=== PATIENT | female | born 1960 | race Caucasian/White ===

== ENCOUNTER 2016-10-23 05:23 | Emergency (ER) | payer BC, OTHER ==
--- NOTE | 2016-10-23 05:27 | PDOC ---
History of Present Illness - General Stated Complaint: RX TO SHINGLES SHOT - History of Present Illness Initial Comments: This 56-year-old woman with a history of hypertension and hyperlipidemia presents with 12 hour history of subjective fever and warm/red/painful area of the left upper arm where she had zoster vaccine administered approximately 24 hours prior to onset of symptoms.(Patient also had influenza vaccination but this was given higher up on her arm). Patient denies lip/tongue swelling. She had no difficulty swallowing or breathing. She denies wheezing/stridor. No previous known history of adverse reaction to vaccine. Patient has no known ALLERGIES. Patient also has had a generalized headache in the last several hours. There is been no recent upper respiratory infection symptoms, cough or rash. Patient smokes one pack of cigarettes per week Social alcohol only Medications as noted below Past History - Past Medical History Allergies/Adverse Reactions: Allergies Allergy/AdvReac Type Severity Reaction Status Date / Time No Known Allergies Allergy Verified 05/10/15 07:10 Home Medications: Ambulatory Orders Albuterol Sulfate Inhaler - [Ventolin HFA Inhaler -] 2 inh IH Q4H PRN #1 inh Fenofibrate 05/10/15 Oseltamivir Phosphate [Tamiflu] 75 mg PO BID #10 capsule 05/10/15 Zyrtec - 05/10/15 Hypercholesterolemia: Yes - Psycho/Social/Smoking Cessation Hx Anxiety: No Suicidal Ideation: No Smoking History: Current some day smoker Have you smoked in the past 12 months: Yes Number of Cigarettes Smoked Daily: 1 'Breaking Loose' booklet given: 06/09/13 Hx Alcohol Use: Yes (1 PER WEEK) Drug/Substance Use Hx: No Substance Use Type: None Review of Systems - Review of Systems Able to Perform ROS?: Yes Comments:: 12 point review of systems is negative except for what is noted in the history of present illness *Physical Exam - Physical Exam Comments: GENERAL: Adult female, anxious but in no acute distress HEAD: Normal with no signs of trauma. EYES: PERRLA, EOMI, sclera anicteric, conjunctiva clear. ENT: Ears normal, nares patent, oropharynx clear without exudates. Dry mucous membranes. NECK: Normal range of motion, supple without lymphadenopathy, JVD, or masses. No stridor LUNGS: Breath sounds equal, clear to auscultation bilaterally. No wheezes, and no crackles. HEART:Regular rate and rhythm, normal S1 and S2 without murmur, rub or gallop. ABDOMEN:.normal bowel sounds No guarding,tenderness or rebound.No masses No distention. EXTREMITIES: Left upper extremity: 4 cm x 5 cm indurated, erythematous, mildly tender area lateral aspect mid upper arm No fluctuance or open wounds; no purulent drainage Remainder of the extremity exam is normal NEUROLOGICAL: Cranial nerves II through XII grossly intact. Normal speech. No focal neurological deficits. MUSCULOSKELETAL: Back non-tender to palpation, no CVA tenderness SKIN: Warm, Dry, normal turgor, Medical Decision Making - Medical Decision Making 10/23/16 05:54 Clinical presentation most consistent with local adverse effect to zoster vaccine. Patient given Tylenol 1 g by mouth for her headache 10/23/16 06:12 Patient tolerating fluids by mouth (12 ounces of water) without vomiting or other problems Patient will be discharged with instructions to continue rest/plenty of fluids. She should take Motrin or Tylenol as needed for fever and headache. She can place warm compresses to the area of inflammation on her arm. She return if she has vomiting/severe headache or any difficulty swallowing or breathing. She should follow-up with her PMD, Dr. Alejandro within the next week to 10 days *DC/Admit/Observation/Transfer Diagnosis at time of Disposition: Adverse effect of zoster vaccine - Discharge Dispostion Disposition: HOME Condition at time of disposition: Stable - Referrals Referrals: Rebecca Alejandro MD [Primary Care Provider] - - Patient Instructions Printed Discharge Instructions: Shingles (Zoster) Vaccine Additional Instructions: Rest; drink plenty of fluids Can apply local warm compresses to painful area on left arm Tylenol/Motrin as needed for fever and headache Return to ER if you have difficulty swallowing/breathing or have persistent high fever /severe rash Follow-up with Dr. Alejandro within the next week to 10 days
[2016-10-23 05:31] VITALS: BP 143/80; PULSE 83; TEMP 99.6
[2016-10-23] MEDS ORDERED: ACETAMINOPHEN 500 MG TABLET (FP) PO ONE (05:43)
[2016-10-23] MEDS ORDERED: ACETAMINOPHEN 500 MG TABLET (FP) ONE (05:47)
== END 2016-10-23 06:12 | disposition home or self-care (01) ==
LOC: FER 05:23
DX: M79.622 Pain in left upper arm (principal); T50.995A Adverse effect of other drugs, medicaments and biological substances, initial encounter; Y92.9 Unspecified place or not applicable; I10 Essential (primary) hypertension; E78.5 Hyperlipidemia, unspecified; F17.210 Nicotine dependence, cigarettes, uncomplicated
CPT/HCPCS: 99282-25

== ENCOUNTER 2020-05-21 20:07 | Inpatient (IN) | payer OTHER ==
[2020-05-21] MEDS ORDERED: PROPOFOL 1,000,000 MCG/100 ML VIAL ONE (20:16)
[2020-05-21] MEDS ORDERED: MIDAZOLAM HCL 5 MG/1 ML Single Dose Vial IVPUSH ONE (20:28)
[2020-05-21] MEDS ORDERED: MIDAZOLAM HCL 2 MG/2 ML SINGLE DOSE VIAL ONE ×3 (20:28→21:48)
[2020-05-21] MEDS ORDERED: PROPOFOL 1,000,000 MCG/100 ML VIAL IVPB SCH (20:30)
[2020-05-21 21:49] LABS: HEMATOCRIT 45.4 % (32.4-45.2); HEMOGLOBIN 15.1 GM/dL (10.7-15.3); MCH 32.2 pg (25.7-33.7); MCHC 33.4 g/dl (32.0-36.0); MEAN CELL VOLUME 96.7 fl (80-96); PLATELET COUNT 208 K/MM3 (134-434); RDW 13.8 % (11.6-15.6); WHITE BLOOD COUNT 13.2 K/mm3 (4.0-10.0)
[2020-05-21] MEDS: PROPOFOL 1,000,000 MCG/100 ML VIAL IVPB SCH (22:01)
[2020-05-21] MEDS ORDERED: VANCOMYCIN 1 GM in D5W (PRE-DOCKED) 1,000 MG/250 ML IVPB ONE (22:05)
[2020-05-21] MEDS ORDERED: PIPERACILLIN/TAZOB 3.375 GM 3.375 GM in DEXTROSE 5%-WATER - 50 ML IVPB ONE (22:05)
[2020-05-21] MEDS ORDERED: MIDAZOLAM HCL 2 MG/2 ML SINGLE DOSE VIAL IVPUSH ONE (22:05)
[2020-05-21 22:13] LABS: CHLORIDE 104 mmol/L (98-107); SODIUM 138 mmol/L (136-145)
[2020-05-21 22:15] LABS: ALBUMIN 3.4 g/dl (3.4-5.0); ANION GAP 8 MMOL/L (8-16); CALCIUM 9.2 mg/dL (8.5-10.1); CO2 26 mmol/L (21-32); GLUCOSE,RANDOM 223 mg/dL (74-106)
[2020-05-21 22:16] LABS: BLOOD UREA NITROGEN 16.7 mg/dL (7-18)
[2020-05-21] MEDS ORDERED: VANCOMYCIN 1 GRAM (PRE-DOCKED) 1,000 MG/250 ML BAG IVPB ONE (22:17)
[2020-05-21] MEDS ORDERED: PIPERACILLIN/TAZOB 3.375 GM 3.375 GM/50 ML BAG IVPB ONE (22:17)
[2020-05-21 22:19] LABS: BILIRUBIN,TOTAL 0.5 mg/dL (0.2-1); SGOT/AST 188 U/L (15-37); SGPT/ALT 125 U/L (13-61); TOT PROT 7.1 g/dl (6.4-8.2)
[2020-05-21 22:21] LABS: ALK PHOS 77 U/L (45-117); CREATININE 1.3 mg/dL (0.55-1.3)
[2020-05-21 23:45] LABS: EPI CELLS >36 /uL (0-25.1); HYALINE CASTS 8 /uL (0-3.1); PH,URINE 5.5 (5.0-8.0); URINE APPEARANCE CLOUDY; URINE BACTERIA 342 /uL (0-1359); URINE BILIRUBIN NEGATIVE (NEGATIVE); URINE COLOR YELLOW; URINE GLUCOSE (UA) NEGATIVE (NEGATIVE); URINE KETONE NEGATIVE (NEGATIVE); URINE LEUK ESTERASE NEGATIVE (NEGATIVE); URINE NITRITE NEGATIVE (NEGATIVE); URINE PROTEIN 2+ (NEGATIVE); URINE RBC 10 /uL (0-23.9); URINE UROBILINOGEN 0.2 mg/dL (0.2-1.0); URINE WBC 18 /uL (0-25.8)
[2020-05-22] MEDS: FENTANYL NS IVPB 500 MCG/100 ML BAG IVPB SCH (00:35)
[2020-05-22 01:02] VITALS: BMI 29.9
[2020-05-22] MEDS ORDERED: SODIUM CHLORIDE 1,000 ML IV SCH (01:15)
[2020-05-22] MEDS ORDERED: SODIUM CHLORIDE 1,000 ML IV STA ×2 (01:38→07:10)
[2020-05-22] MEDS ORDERED: MIDAZOLAM 100 MG in SODIUM CHLORIDE 100 ML IVPB SCH (02:00)
[2020-05-22] MEDS ORDERED: DEXTROSE 5%-WATER - 50 ML IVPB ONE ×2 (02:02→09:00)
[2020-05-22] MEDS ORDERED: PIPERACILLIN/TAZOBACTAM 3.375 GM VIAL IVPB ONE ×2 (02:02→09:00)
[2020-05-22] MEDS: MIDAZOLAM IN 0.9 % SOD.CHLORID 100 MG/100 ML PLAST..BAG IVPB SCH (02:45)
[2020-05-22] MEDS ORDERED: LORazepam 2 MG/ML SDV VIAL IVPUSH ONE (03:42)
[2020-05-22] MEDS: PIPERACILLIN/TAZOB 3.375 GM 3.375 GM in DEXTROSE 5%-WATER - 50 ML IVPB SCH ×4 (03:46→13:50)
[2020-05-22 07:02] LABS: BASO % 0.2 % (0-2.0); EOS % 0.8 % (0-4.5); HEMATOCRIT 37.1 % (32.4-45.2); HEMOGLOBIN 12.5 GM/dL (10.7-15.3); LYMPH % 16.3 % (8-40); MCH 32.9 pg (25.7-33.7); MCHC 33.6 g/dl (32.0-36.0); MEAN CELL VOLUME 97.8 fl (80-96); MEAN PLT VOLUME 8.7 fl (7.5-11.1); MONO % 7.8 % (3.8-10.2); NEUT % 74.9 % (42.8-82.8); PLATELET COUNT 178 K/MM3 (134-434); RBC 3.79 M/mm3 (3.60-5.2); RDW 13.9 % (11.6-15.6); WHITE BLOOD COUNT 10.8 K/mm3 (4.0-10.0)
[2020-05-22 07:21] LABS: ALBUMIN 3.1 g/dl (3.4-5.0); CALCIUM 8.1 mg/dL (8.5-10.1)
[2020-05-22 07:24] LABS: CREATININE 1.3 mg/dL (0.55-1.3)
[2020-05-22 07:25] LABS: BILIRUBIN,TOTAL 0.5 mg/dL (0.2-1); MAGNESIUM 1.7 mg/dL (1.8-2.4); PHOSPHOROUS 5.4 mg/dL (2.5-4.9)
[2020-05-22] MEDS: SODIUM CHLORIDE 1,000 ML IV SCH (08:26)
[2020-05-22] MEDS ORDERED: PT OWN MED DRAWER 7, Y5N ONE ×2 (13:56→16:10)
[2020-05-22] MEDS: MUPIROCIN 2% TOPICAL OINTMENT FOR DECOLONIZATION NS SCH ×2 (14:05→21:28)
[2020-05-22] MEDS: AMPICILLIN NA/SULBACTAM NA 3 GM in SODIUM CHLORIDE 100 ML IVPB SCH ×2 (16:18→21:27)
[2020-05-22] MEDS ORDERED: ACETAMINOPHEN 1000 MG/100 ML VIAL (NON FORMULARY) IVPB ONE (18:46)
[2020-05-22] MEDS: CHLORHEXIDINE GLUCONATE 4% CLEANSER FOR DECOLONIZATION TP SCH (21:27)
[2020-05-22] MEDS: PROPOFOL 1,000,000 MCG/100 ML VIAL IVPB SCH (23:30)
[2020-05-23] MEDS: AMPICILLIN NA/SULBACTAM NA 3 GM in SODIUM CHLORIDE 100 ML IVPB SCH ×4 (03:00→21:20)
[2020-05-23] MEDS: FENTANYL NS IVPB 500 MCG/100 ML BAG IVPB SCH ×2 (03:25→09:18)
[2020-05-23] MEDS ORDERED: ACETAMINOPHEN 1000 MG/100 ML VIAL (NON FORMULARY) IVPB ONE (04:03)
[2020-05-23] MEDS: MIDAZOLAM IN 0.9 % SOD.CHLORID 100 MG/100 ML PLAST..BAG IVPB SCH (05:05)
[2020-05-23 07:18] LABS: BASO % 0.4 % (0-2.0); EOS % 2.2 % (0-4.5); HEMATOCRIT 35.4 % (32.4-45.2); HEMOGLOBIN 11.9 GM/dL (10.7-15.3); LYMPH % 13.3 % (8-40); MCH 32.8 pg (25.7-33.7); MCHC 33.7 g/dl (32.0-36.0); MEAN CELL VOLUME 97.3 fl (80-96); MEAN PLT VOLUME 8.6 fl (7.5-11.1); MONO % 8.9 % (3.8-10.2); NEUT % 75.2 % (42.8-82.8); PLATELET COUNT 113 K/MM3 (134-434); RBC 3.64 M/mm3 (3.60-5.2); RDW 13.5 % (11.6-15.6); WHITE BLOOD COUNT 6.5 K/mm3 (4.0-10.0)
[2020-05-23 07:40] LABS: ALBUMIN 2.6 g/dl (3.4-5.0); CALCIUM 7.8 mg/dL (8.5-10.1); MAGNESIUM 1.6 mg/dL (1.8-2.4)
[2020-05-23 07:43] LABS: CREATININE 0.7 mg/dL (0.55-1.3)
[2020-05-23 07:45] LABS: BILIRUBIN,TOTAL 0.9 mg/dL (0.2-1); TOT PROT 5.2 g/dl (6.4-8.2)
[2020-05-23 07:49] LABS: PHOSPHOROUS 2.4 mg/dL (2.5-4.9)
[2020-05-23] MEDS ORDERED: PT OWN MED DRAWER 7, Y5N ONE ×3 (09:13→21:09)
[2020-05-23] MEDS: MUPIROCIN 2% TOPICAL OINTMENT FOR DECOLONIZATION NS SCH ×2 (09:17→21:20)
[2020-05-23] MEDS: SODIUM CHLORIDE 1,000 ML IV SCH (09:17)
[2020-05-23] MEDS ORDERED: NAPH,MB-DB/K PH,MBDB POWDER PACKET NGT ONE (09:30)
[2020-05-23] MEDS ORDERED: MAGNESIUM 1GM/D5W 100ML - 100 ML IVPB IVPB ONE (09:30)
[2020-05-23] MEDS: ACETAMINOPHEN 1000 MG/100 ML VIAL (NON FORMULARY) IVPB PRN ×2 (12:07→21:56)
[2020-05-23] MEDS ORDERED: LORazepam 2 MG/ML SDV VIAL IVPUSH ONE ×2 (15:05→21:48)
[2020-05-23] MEDS: CHLORHEXIDINE GLUCONATE 4% CLEANSER FOR DECOLONIZATION TP SCH (21:20)
[2020-05-23] MEDS: MORPHINE SULFATE 2 MG/ML VIAL IVPUSH PRN (21:21)
[2020-05-23] MEDS ORDERED: LORazepam 2 MG/ML SDV VIAL ONE (21:53)
[2020-05-23] MEDS ORDERED: ACETAMINOPHEN INJECTION 100 ML IVPB ONE (21:54)
[2020-05-24] MEDS: MORPHINE SULFATE 2 MG/ML VIAL IVPUSH PRN (01:45)
[2020-05-24] MEDS ORDERED: LORazepam 2 MG/ML SDV VIAL IVPUSH ONE ×5 (02:26→21:02)
[2020-05-24] MEDS ORDERED: PT OWN MED DRAWER 7, Y5N ONE ×3 (02:27→14:56)
[2020-05-24] MEDS: AMPICILLIN NA/SULBACTAM NA 3 GM in SODIUM CHLORIDE 100 ML IVPB SCH ×4 (02:37→21:24)
[2020-05-24 07:09] LABS: BASO % 0.6 % (0-2.0); HEMATOCRIT 34.7 % (32.4-45.2); LYMPH % 14.4 % (8-40); MCH 33.1 pg (25.7-33.7); MCHC 34.5 g/dl (32.0-36.0); MEAN CELL VOLUME 95.7 fl (80-96); MEAN PLT VOLUME 8.4 fl (7.5-11.1); MONO % 9.2 % (3.8-10.2); NEUT % 73.8 % (42.8-82.8); PLATELET COUNT 104 K/MM3 (134-434); RBC 3.62 M/mm3 (3.60-5.2); RDW 13.2 % (11.6-15.6); WHITE BLOOD COUNT 5.3 K/mm3 (4.0-10.0)
[2020-05-24 07:36] LABS: ALBUMIN 2.8 g/dl (3.4-5.0); BLOOD UREA NITROGEN 4.9 mg/dL (7-18); CALCIUM 8.7 mg/dL (8.5-10.1); MAGNESIUM 1.8 mg/dL (1.8-2.4)
[2020-05-24 07:38] LABS: CREATININE 0.6 mg/dL (0.55-1.3); PHOSPHOROUS 1.4 mg/dL (2.5-4.9)
[2020-05-24 07:40] LABS: TOT PROT 5.8 g/dl (6.4-8.2)
[2020-05-24] MEDS: SODIUM CHLORIDE 1,000 ML IV SCH ×2 (09:29→19:14)
[2020-05-24] MEDS: MUPIROCIN 2% TOPICAL OINTMENT FOR DECOLONIZATION NS SCH ×2 (09:33→21:23)
[2020-05-24] MEDS ORDERED: LORazepam 2 MG TABLET PO PRN (13:08)
[2020-05-24] MEDS ORDERED: LORazepam 2 MG/ML SDV VIAL IVPUSH PRN (13:44)
[2020-05-24] MEDS: LORazepam 1 MG TABLET PO PRN (14:57)
[2020-05-24] MEDS ORDERED: ACETAMINOPHEN 1000 MG/100 ML VIAL (NON FORMULARY) IVPB ONE (19:24)
[2020-05-24] MEDS ORDERED: FUROSEMIDE 40 MG/4 ML INJECTABLE VIAL IVPUSH ONE (21:06)
[2020-05-24] MEDS: CHLORHEXIDINE GLUCONATE 4% CLEANSER FOR DECOLONIZATION TP SCH (21:23)
[2020-05-25] MEDS ORDERED: LORazepam 2 MG/ML SDV VIAL IVPUSH ONE (00:41)
[2020-05-25] MEDS: MORPHINE SULFATE 2 MG/ML VIAL IVPUSH PRN (00:47)
[2020-05-25] MEDS ORDERED: PT OWN MED DRAWER 7, Y5N ONE ×4 (02:14→13:38)
[2020-05-25] MEDS: AMPICILLIN NA/SULBACTAM NA 3 GM in SODIUM CHLORIDE 100 ML IVPB SCH ×4 (03:30→21:46)
[2020-05-25 07:07] LABS: BASO % 1.1 % (0-2.0); EOS % 0.9 % (0-4.5); HEMATOCRIT 38.4 % (32.4-45.2); HEMOGLOBIN 13.5 GM/dL (10.7-15.3); LYMPH % 9.8 % (8-40); MCH 33.1 pg (25.7-33.7); MCHC 35.3 g/dl (32.0-36.0); MEAN CELL VOLUME 93.8 fl (80-96); MEAN PLT VOLUME 8.4 fl (7.5-11.1); MONO % 9.2 % (3.8-10.2); PLATELET COUNT 186 K/MM3 (134-434); RBC 4.09 M/mm3 (3.60-5.2)
[2020-05-25 07:31] LABS: CHLORIDE 99 mmol/L (98-107); SODIUM 138 mmol/L (136-145)
[2020-05-25 07:37] LABS: ANION GAP 10 MMOL/L (8-16); CALCIUM 9.4 mg/dL (8.5-10.1); CO2 29 mmol/L (21-32)
[2020-05-25 07:38] LABS: BLOOD UREA NITROGEN 9.5 mg/dL (7-18); GLUCOSE,RANDOM 122 mg/dL (74-106); MAGNESIUM 1.5 mg/dL (1.8-2.4)
[2020-05-25 07:40] LABS: SGOT/AST 94 U/L (15-37); SGPT/ALT 74 U/L (13-61)
[2020-05-25 07:41] LABS: CREATININE 0.9 mg/dL (0.55-1.3)
[2020-05-25 07:42] LABS: BILIRUBIN,TOTAL 1.6 mg/dL (0.2-1)
[2020-05-25 07:43] LABS: ALK PHOS 91 U/L (45-117)
[2020-05-25 07:50] LABS: ALBUMIN 3.5 g/dl (3.4-5.0)
[2020-05-25 07:59] LABS: PHOSPHOROUS 1.1 mg/dL (2.5-4.9)
[2020-05-25] MEDS: MUPIROCIN 2% TOPICAL OINTMENT FOR DECOLONIZATION NS SCH ×2 (09:29→22:28)
[2020-05-25] MEDS: LORazepam 1 MG TABLET PO PRN (09:30)
[2020-05-25] MEDS ORDERED: ACETAMINOPHEN 325 MG TABLET (FP) ONE (16:24)
[2020-05-25] MEDS: ACETAMINOPHEN 325 MG TABLET (FP) PO PRN (16:26)
[2020-05-25] MEDS: SODIUM CHLORIDE 1,000 ML IV SCH (21:45)
[2020-05-25] MEDS: CHLORHEXIDINE GLUCONATE 4% CLEANSER FOR DECOLONIZATION TP SCH (21:46)
[2020-05-26] MEDS: ACETAMINOPHEN 325 MG TABLET (FP) PO PRN ×2 (00:09→21:42)
[2020-05-26] MEDS ORDERED: PT OWN MED DRAWER 7, Y5N ONE ×4 (01:06→21:11)
[2020-05-26] MEDS: AMPICILLIN NA/SULBACTAM NA 3 GM in SODIUM CHLORIDE 100 ML IVPB SCH ×4 (03:34→21:17)
[2020-05-26] MEDS: MUPIROCIN 2% TOPICAL OINTMENT FOR DECOLONIZATION NS SCH ×2 (10:55→21:17)
[2020-05-26] MEDS ORDERED: guaiFENesin/CODEINE 10 ML UNIT-DOSE CUPS PO PRN (13:44)
[2020-05-26 14:11] LABS: BASO % 0.9 % (0-2.0); HEMOGLOBIN 13.5 GM/dL (10.7-15.3); LYMPH % 17.5 % (8-40); MCH 32.8 pg (25.7-33.7); MCHC 34.6 g/dl (32.0-36.0); MEAN CELL VOLUME 94.8 fl (80-96); MONO % 8.1 % (3.8-10.2); NEUT % 68.5 % (42.8-82.8); PLATELET COUNT 172 K/MM3 (134-434); RBC 4.12 M/mm3 (3.60-5.2); RDW 13.3 % (11.6-15.6); WHITE BLOOD COUNT 5.3 K/mm3 (4.0-10.0)
[2020-05-26 14:36] LABS: BLOOD UREA NITROGEN 11.9 mg/dL (7-18); CALCIUM 8.8 mg/dL (8.5-10.1)
[2020-05-26 14:37] LABS: MAGNESIUM 1.8 mg/dL (1.8-2.4)
[2020-05-26 14:39] LABS: PHOSPHOROUS 2.1 mg/dL (2.5-4.9)
[2020-05-26 14:40] LABS: CREATININE 0.8 mg/dL (0.55-1.3)
[2020-05-26 14:41] LABS: BILIRUBIN,TOTAL 0.7 mg/dL (0.2-1)
[2020-05-26 14:43] LABS: ALBUMIN 2.7 g/dl (3.4-5.0)
[2020-05-26] MEDS: ALBUTEROL SO4 2.5/IPRATROPIUM 0.5 INH SOL 3 ML VIAL.NEB. NEB SCH ×3 (15:11→20:30)
[2020-05-26] MEDS: methylPREDNISolone NA SUCC 40 MG/1 ML VIAL IVPUSH SCH ×2 (15:55→17:48)
[2020-05-26] MEDS: SODIUM CHLORIDE 1,000 ML IV SCH (19:00)
[2020-05-26] MEDS ORDERED: LORazepam 2 MG/ML SDV VIAL IVPUSH PRN (20:15)
[2020-05-26] MEDS: MELATONIN 5 MG TABLETS PO PRN (20:35)
[2020-05-26] MEDS: CHLORHEXIDINE GLUCONATE 4% CLEANSER FOR DECOLONIZATION TP SCH (21:17)
[2020-05-27] MEDS ORDERED: LORazepam 2 MG/ML SDV VIAL IVPUSH ONE ×2 (01:06→14:55)
[2020-05-27] MEDS ORDERED: PT OWN MED DRAWER 7, Y5N ONE ×7 (01:11→21:05)
[2020-05-27] MEDS: methylPREDNISolone NA SUCC 40 MG/1 ML VIAL IVPUSH SCH ×2 (01:23→09:46)
[2020-05-27] MEDS: AMPICILLIN NA/SULBACTAM NA 3 GM in SODIUM CHLORIDE 100 ML IVPB SCH ×4 (02:23→20:20)
[2020-05-27] MEDS: ACETAMINOPHEN 325 MG TABLET (FP) PO PRN ×4 (03:10→22:17)
[2020-05-27] MEDS ORDERED: FUROSEMIDE 40 MG/4 ML INJECTABLE VIAL IVPUSH ONE ×2 (03:25→15:26)
[2020-05-27 06:58] LABS: BASO % 0.3 % (0-2.0); HEMATOCRIT 36.3 % (32.4-45.2); HEMOGLOBIN 12.5 GM/dL (10.7-15.3); MCHC 34.5 g/dl (32.0-36.0); MEAN CELL VOLUME 95.6 fl (80-96); MEAN PLT VOLUME 8.5 fl (7.5-11.1); NEUT % 83.7 % (42.8-82.8); PLATELET COUNT 197 K/MM3 (134-434); RDW 13.2 % (11.6-15.6); WHITE BLOOD COUNT 4.8 K/mm3 (4.0-10.0)
[2020-05-27 07:25] LABS: ALBUMIN 2.8 g/dl (3.4-5.0); BLOOD UREA NITROGEN 14.6 mg/dL (7-18); CALCIUM 9.2 mg/dL (8.5-10.1)
[2020-05-27 07:26] LABS: MAGNESIUM 1.8 mg/dL (1.8-2.4)
[2020-05-27 07:28] LABS: CREATININE 0.7 mg/dL (0.55-1.3); PHOSPHOROUS 2.8 mg/dL (2.5-4.9)
[2020-05-27 07:30] LABS: BILIRUBIN,TOTAL 0.5 mg/dL (0.2-1); TOT PROT 6.2 g/dl (6.4-8.2)
[2020-05-27] MEDS: KCL 10 MEQ IVPB 10 MEQ/100 ML INFUS.BAG IVPB SCH ×3 (09:46→12:37)
[2020-05-27] MEDS: ALBUTEROL SO4 2.5/IPRATROPIUM 0.5 INH SOL 3 ML VIAL.NEB. NEB SCH ×4 (09:47→21:00)
[2020-05-27] MEDS ORDERED: KCL 10 MEQ IVPB 10 MEQ/100 ML INFUS.BAG IVPB SCH (12:00)
[2020-05-27 14:41] LABS: N-TERMINAL BNP 517.5 pg/ml (5-125)
[2020-05-27] MEDS: ENOXAPARIN NA (PORCINE) 40 MG/0.4 ML DISP.SYRIN SQ SCH (16:59)
[2020-05-27] MEDS: NICOTINE 14 MG/24 HOURS TOPICAL PATCH TD SCH (18:20)
[2020-05-27] MEDS: VENLAFAXINE HCL 25 MG TABLET PO SCH (21:12)
[2020-05-27] MEDS: MELATONIN 5 MG TABLETS PO PRN (21:13)
[2020-05-27] MEDS: CHLORHEXIDINE GLUCONATE 4% CLEANSER FOR DECOLONIZATION TP SCH (21:13)
[2020-05-28] MEDS: methylPREDNISolone NA SUCC 40 MG/1 ML VIAL IVPUSH SCH ×2 (02:20→04:21)
[2020-05-28] MEDS: AMPICILLIN NA/SULBACTAM NA 3 GM in SODIUM CHLORIDE 100 ML IVPB SCH ×4 (02:20→21:19)
[2020-05-28 07:15] LABS: BASO % 0.2 % (0-2.0); HEMATOCRIT 35.7 % (32.4-45.2); HEMOGLOBIN 12.4 GM/dL (10.7-15.3); LYMPH % 12.5 % (8-40); MCH 32.6 pg (25.7-33.7); MCHC 34.8 g/dl (32.0-36.0); MEAN CELL VOLUME 93.6 fl (80-96); MEAN PLT VOLUME 8.6 fl (7.5-11.1); MONO % 3.2 % (3.8-10.2); NEUT % 84.1 % (42.8-82.8); PLATELET COUNT 229 K/MM3 (134-434); RBC 3.82 M/mm3 (3.60-5.2); RDW 13.4 % (11.6-15.6); WHITE BLOOD COUNT 10.5 K/mm3 (4.0-10.0)
[2020-05-28 07:40] LABS: CALCIUM 9.3 mg/dL (8.5-10.1)
[2020-05-28 07:41] LABS: BLOOD UREA NITROGEN 25.9 mg/dL (7-18); MAGNESIUM 1.8 mg/dL (1.8-2.4)
[2020-05-28 07:44] LABS: CREATININE 0.8 mg/dL (0.55-1.3); PHOSPHOROUS 4.2 mg/dL (2.5-4.9)
[2020-05-28 07:45] LABS: BILIRUBIN,TOTAL 0.6 mg/dL (0.2-1); TOT PROT 6.1 g/dl (6.4-8.2)
[2020-05-28] MEDS ORDERED: LOSARTAN 50MG/HCTZ 12.5MG 1 TAB PO ONE (08:00)
[2020-05-28] MEDS ORDERED: PT OWN MED DRAWER 7, Y5N ONE ×3 (08:10→21:01)
[2020-05-28] MEDS: ALBUTEROL SO4 2.5/IPRATROPIUM 0.5 INH SOL 3 ML VIAL.NEB. NEB SCH ×4 (09:07→20:42)
[2020-05-28] MEDS: ENOXAPARIN NA (PORCINE) 40 MG/0.4 ML DISP.SYRIN SQ SCH (09:22)
[2020-05-28] MEDS: VENLAFAXINE HCL 25 MG TABLET PO SCH ×2 (09:24→21:18)
[2020-05-28] MEDS: ACETAMINOPHEN 325 MG TABLET (FP) PO PRN ×3 (09:24→22:19)
[2020-05-28] MEDS: traZODone HCL 50 MG TABLET (FP) PO SCH (09:25)
[2020-05-28] MEDS: NICOTINE 14 MG/24 HOURS TOPICAL PATCH TD SCH (09:34)
[2020-05-28 09:59] LABS: ANISOCYTOSIS 0; HELMET CELLS 0; HOWELL-JOLLY BODIES 0; MACROCYTOSIS 0; OVALOCYTE 0; PLATELET ESTIMATE NORMAL; ROULEAU 0; SICKELED CELLS 0; TARGET CELLS 0; TEAR DROP CELLS 0; TOXIC GRANULATION 0
[2020-05-28] MEDS ORDERED: LOSARTAN 50MG/HCTZ 12.5MG 1 TAB PO SCH (10:00)
[2020-05-28] MEDS ORDERED: FUROSEMIDE 40 MG/4 ML INJECTABLE VIAL IVPUSH ONE (10:45)
[2020-05-28] MEDS ORDERED: PNEUMOC 13-VAL CONJ-DIP CRM/PF 0.5 ML DISP.SYRIN IM ONE (12:06)
[2020-05-28] MEDS ORDERED: PNEUMOCOCCAL 23 VACCINE 0.5 ML VIAL IM ONE (14:00)
[2020-05-28] MEDS: DOCUSATE SODIUM 100 MG CAPSULE (FP) PO SCH ×2 (16:14→21:19)
[2020-05-28] MEDS: POLYETHYLENE GLYCOL 3350 119 GM BTL PO SCH (16:15)
[2020-05-28] MEDS ORDERED: HYDROCHLOROTHIAZIDE 25 MG TABLET (FP) PO ONE (16:29)
[2020-05-28] MEDS ORDERED: LOSARTAN POTASSIUM 50 MG TABLET PO ONE (16:29)
[2020-05-28] MEDS ORDERED: HYDROCHLOROTHIAZIDE 12.5 MG CAPSULE (FP) PO ONE (16:32)
[2020-05-28] MEDS: MELATONIN 5 MG TABLETS PO PRN (21:18)
[2020-05-28] MEDS: CHLORHEXIDINE GLUCONATE 4% CLEANSER FOR DECOLONIZATION TP SCH (21:20)
[2020-05-29] MEDS: AMPICILLIN NA/SULBACTAM NA 3 GM in SODIUM CHLORIDE 100 ML IVPB SCH ×2 (02:16→08:53)
[2020-05-29] MEDS: ACETAMINOPHEN 325 MG TABLET (FP) PO PRN ×3 (05:15→19:48)
[2020-05-29] MEDS: DOCUSATE SODIUM 100 MG CAPSULE (FP) PO SCH ×3 (05:15→21:23)
[2020-05-29] MEDS ORDERED: PT OWN MED DRAWER 7, Y5N ONE ×6 (05:18→20:49)
[2020-05-29 07:13] LABS: BASO % 0.2 % (0-2.0); EOS % 0.5 % (0-4.5); HEMATOCRIT 37.4 % (32.4-45.2); LYMPH % 31.1 % (8-40); MCH 32.8 pg (25.7-33.7); MCHC 34.7 g/dl (32.0-36.0); MEAN CELL VOLUME 94.5 fl (80-96); MEAN PLT VOLUME 8.3 fl (7.5-11.1); MONO % 9.5 % (3.8-10.2); NEUT % 58.7 % (42.8-82.8); PLATELET COUNT 244 K/MM3 (134-434); RBC 3.96 M/mm3 (3.60-5.2); RDW 13.5 % (11.6-15.6); WHITE BLOOD COUNT 10.6 K/mm3 (4.0-10.0)
[2020-05-29 07:35] LABS: BLOOD UREA NITROGEN 27.3 mg/dL (7-18); CALCIUM 8.6 mg/dL (8.5-10.1)
[2020-05-29 07:36] LABS: ALBUMIN 3.1 g/dl (3.4-5.0); MAGNESIUM 1.8 mg/dL (1.8-2.4)
[2020-05-29 07:38] LABS: PHOSPHOROUS 4.5 mg/dL (2.5-4.9)
[2020-05-29 07:39] LABS: CREATININE 0.8 mg/dL (0.55-1.3)
[2020-05-29 07:40] LABS: BILIRUBIN,TOTAL 0.6 mg/dL (0.2-1); TOT PROT 6.2 g/dl (6.4-8.2)
[2020-05-29] MEDS ORDERED: POTASSIUM CHLORIDE TABS 20 MEQ TABLET.ER (FP) PO ONE (08:00)
[2020-05-29] MEDS ORDERED: oxyCODONE HCL 5 MG TABLET PO ONE (08:07)
[2020-05-29] MEDS: ALBUTEROL SO4 2.5/IPRATROPIUM 0.5 INH SOL 3 ML VIAL.NEB. NEB SCH ×4 (08:44→21:00)
[2020-05-29] MEDS: KCL 10 MEQ IVPB 10 MEQ/100 ML INFUS.BAG IVPB SCH ×2 (08:53→11:37)
[2020-05-29] MEDS: VENLAFAXINE HCL 25 MG TABLET PO SCH ×2 (09:14→21:23)
[2020-05-29] MEDS: traZODone HCL 50 MG TABLET (FP) PO SCH (09:14)
[2020-05-29] MEDS: ENOXAPARIN NA (PORCINE) 40 MG/0.4 ML DISP.SYRIN SQ SCH (09:15)
[2020-05-29] MEDS: POLYETHYLENE GLYCOL 3350 119 GM BTL PO SCH (09:15)
[2020-05-29] MEDS: NICOTINE 14 MG/24 HOURS TOPICAL PATCH TD SCH (09:16)
[2020-05-29] MEDS ORDERED: LOSARTAN 50MG/HCTZ 12.5MG 1 TAB PO SCH (10:00)
[2020-05-29] MEDS ORDERED: PETROLATUM, WHITE 30 GM TUBE TP PRN (12:43)
[2020-05-29] MEDS ORDERED: POTASSIUM CHLORIDE ORAL LIQUID 20 MEQ/15 ML PO ONE (16:00)
[2020-05-29] MEDS: AMOX TR/POT CLAV 875MG/125MG TABLETS (FP) PO SCH (17:32)
[2020-05-29] MEDS: MELATONIN 5 MG TABLETS PO PRN (21:24)
[2020-05-29] MEDS ORDERED: ATORVASTATIN CA 80 MG TABLET (FP) PO SCH (22:00)
[2020-05-29] MEDS ORDERED: CHLORHEXIDINE GLUCONATE 4% CLEANSER FOR DECOLONIZATION TP SCH (22:00)
[2020-05-30] MEDS: ACETAMINOPHEN 325 MG TABLET (FP) PO PRN (01:33)
[2020-05-30] MEDS ORDERED: oxyCODONE HCL 5 MG TABLET PO ONE (06:00)
[2020-05-30] MEDS: DOCUSATE SODIUM 100 MG CAPSULE (FP) PO SCH ×3 (06:11→21:48)
[2020-05-30 07:04] LABS: HEMATOCRIT 42.1 % (32.4-45.2); HEMOGLOBIN 14.7 GM/dL (10.7-15.3); MCH 33.4 pg (25.7-33.7); MEAN CELL VOLUME 95.5 fl (80-96); MEAN PLT VOLUME 8.7 fl (7.5-11.1); PLATELET COUNT 262 K/MM3 (134-434); RBC 4.41 M/mm3 (3.60-5.2); RDW 13.6 % (11.6-15.6); WHITE BLOOD COUNT 9.9 K/mm3 (4.0-10.0)
[2020-05-30 07:48] LABS: BLOOD UREA NITROGEN 22.2 mg/dL (7-18); CALCIUM 9.4 mg/dL (8.5-10.1)
[2020-05-30 07:49] LABS: MAGNESIUM 2.2 mg/dL (1.8-2.4)
[2020-05-30 07:51] LABS: CREATININE 0.7 mg/dL (0.55-1.3)
[2020-05-30] MEDS: ALBUTEROL SO4 2.5/IPRATROPIUM 0.5 INH SOL 3 ML VIAL.NEB. NEB SCH ×4 (08:10→21:06)
[2020-05-30] MEDS ORDERED: PT OWN MED DRAWER 7, Y5N ONE ×3 (09:17→21:16)
[2020-05-30] MEDS: ENOXAPARIN NA (PORCINE) 40 MG/0.4 ML DISP.SYRIN SQ SCH (09:20)
[2020-05-30] MEDS: traZODone HCL 50 MG TABLET (FP) PO SCH ×2 (09:20→10:21)
[2020-05-30] MEDS: LOSARTAN 50MG/HCTZ 12.5MG 1 TAB PO SCH (09:22)
[2020-05-30] MEDS: AMOX TR/POT CLAV 875MG/125MG TABLETS (FP) PO SCH ×2 (09:23→17:13)
[2020-05-30] MEDS: NICOTINE 14 MG/24 HOURS TOPICAL PATCH TD SCH (09:25)
[2020-05-30] MEDS: POLYETHYLENE GLYCOL 3350 119 GM BTL PO SCH (09:39)
[2020-05-30] MEDS: VENLAFAXINE HCL 25 MG TABLET PO SCH ×2 (10:31→21:49)
[2020-05-30] MEDS: oxyCODONE HCL 5 MG TABLET PO PRN ×2 (12:39→18:40)
[2020-05-30] MEDS: ATORVASTATIN CA 80 MG TABLET (FP) PO SCH (21:47)
[2020-05-31] MEDS: MELATONIN 5 MG TABLETS PO PRN ×2 (00:30→21:26)
[2020-05-31] MEDS: oxyCODONE HCL 5 MG TABLET PO PRN ×4 (00:30→18:18)
[2020-05-31] MEDS: ACETAMINOPHEN 325 MG TABLET (FP) PO PRN ×4 (00:33→18:20)
[2020-05-31] MEDS: DOCUSATE SODIUM 100 MG CAPSULE (FP) PO SCH ×3 (06:29→21:21)
[2020-05-31] MEDS: ALBUTEROL SO4 2.5/IPRATROPIUM 0.5 INH SOL 3 ML VIAL.NEB. NEB SCH ×4 (07:11→19:45)
[2020-05-31 07:15] LABS: BASO % 0.4 % (0-2.0); EOS % 1.8 % (0-4.5); HEMATOCRIT 43.4 % (32.4-45.2); HEMOGLOBIN 14.9 GM/dL (10.7-15.3); LYMPH % 17.4 % (8-40); MCHC 34.5 g/dl (32.0-36.0); MEAN CELL VOLUME 95.6 fl (80-96); MEAN PLT VOLUME 8.7 fl (7.5-11.1); MONO % 7.6 % (3.8-10.2); NEUT % 72.8 % (42.8-82.8); PLATELET COUNT 331 K/MM3 (134-434); RBC 4.53 M/mm3 (3.60-5.2); RDW 13.4 % (11.6-15.6); WHITE BLOOD COUNT 12.6 K/mm3 (4.0-10.0)
[2020-05-31 07:38] LABS: BLOOD UREA NITROGEN 21.9 mg/dL (7-18)
[2020-05-31 07:39] LABS: ALBUMIN 3.6 g/dl (3.4-5.0); CALCIUM 9.9 mg/dL (8.5-10.1); MAGNESIUM 2.2 mg/dL (1.8-2.4)
[2020-05-31 07:42] LABS: CREATININE 0.8 mg/dL (0.55-1.3); PHOSPHOROUS 4.1 mg/dL (2.5-4.9)
[2020-05-31 07:43] LABS: BILIRUBIN,TOTAL 0.7 mg/dL (0.2-1); TOT PROT 7.3 g/dl (6.4-8.2)
[2020-05-31] MEDS: POLYETHYLENE GLYCOL 3350 119 GM BTL PO SCH (10:40)
[2020-05-31] MEDS: NICOTINE 14 MG/24 HOURS TOPICAL PATCH TD SCH (10:40)
[2020-05-31] MEDS: ENOXAPARIN NA (PORCINE) 40 MG/0.4 ML DISP.SYRIN SQ SCH (10:40)
[2020-05-31] MEDS: AMOX TR/POT CLAV 875MG/125MG TABLETS (FP) PO SCH ×2 (10:40→17:16)
[2020-05-31] MEDS: LOSARTAN 50MG/HCTZ 12.5MG 1 TAB PO SCH (10:40)
[2020-05-31] MEDS: VENLAFAXINE HCL 25 MG TABLET PO SCH ×2 (10:42→21:22)
[2020-05-31] MEDS ORDERED: PT OWN MED DRAWER 7, Y5N ONE (10:43)
[2020-05-31] MEDS: traZODone HCL 50 MG TABLET (FP) PO SCH (10:53)
[2020-05-31] MEDS: SODIUM CHLORIDE 1,000 ML IV SCH (12:28)
[2020-05-31 13:07] LABS: SARS-CoV-2 NAA Not Detected (Not Detected)
[2020-05-31] MEDS: ATORVASTATIN CA 80 MG TABLET (FP) PO SCH (21:21)
[2020-06-01] MEDS: oxyCODONE HCL 5 MG TABLET PO PRN ×3 (00:13→11:58)
[2020-06-01] MEDS: ACETAMINOPHEN 325 MG TABLET (FP) PO PRN ×2 (00:19→23:08)
[2020-06-01] MEDS: DOCUSATE SODIUM 100 MG CAPSULE (FP) PO SCH ×3 (06:03→21:16)
[2020-06-01 07:06] LABS: BASO % 0.3 % (0-2.0); EOS % 2.3 % (0-4.5); HEMATOCRIT 41.6 % (32.4-45.2); HEMOGLOBIN 14.1 GM/dL (10.7-15.3); LYMPH % 20.1 % (8-40); MCH 32.5 pg (25.7-33.7); MCHC 33.8 g/dl (32.0-36.0); MEAN PLT VOLUME 8.9 fl (7.5-11.1); MONO % 7.5 % (3.8-10.2); NEUT % 69.8 % (42.8-82.8); PLATELET COUNT 284 K/MM3 (134-434); RBC 4.33 M/mm3 (3.60-5.2); RDW 13.4 % (11.6-15.6); WHITE BLOOD COUNT 10.4 K/mm3 (4.0-10.0)
[2020-06-01 07:30] LABS: CALCIUM 9.1 mg/dL (8.5-10.1)
[2020-06-01 07:31] LABS: BLOOD UREA NITROGEN 26.1 mg/dL (7-18)
[2020-06-01 07:34] LABS: CREATININE 0.8 mg/dL (0.55-1.3); PHOSPHOROUS 3.6 mg/dL (2.5-4.9)
[2020-06-01] MEDS: ALBUTEROL SO4 2.5/IPRATROPIUM 0.5 INH SOL 3 ML VIAL.NEB. NEB SCH ×4 (08:34→20:36)
[2020-06-01] MEDS: VENLAFAXINE HCL 25 MG TABLET PO SCH ×2 (10:25→21:16)
[2020-06-01] MEDS: LOSARTAN 50MG/HCTZ 12.5MG 1 TAB PO SCH (10:25)
[2020-06-01] MEDS: ENOXAPARIN NA (PORCINE) 40 MG/0.4 ML DISP.SYRIN SQ SCH (10:25)
[2020-06-01] MEDS: traZODone HCL 50 MG TABLET (FP) PO SCH (10:25)
[2020-06-01] MEDS: NICOTINE 14 MG/24 HOURS TOPICAL PATCH TD SCH (10:26)
[2020-06-01] MEDS: POLYETHYLENE GLYCOL 3350 119 GM BTL PO SCH (10:26)
[2020-06-01] MEDS: SODIUM CHLORIDE 1,000 ML IV SCH (10:26)
[2020-06-01] MEDS: AMOX TR/POT CLAV 875MG/125MG TABLETS (FP) PO SCH ×2 (11:09→18:35)
[2020-06-01] MEDS ORDERED: NICOTINE 14 MG/24 HOURS TOPICAL PATCH TD SCH (13:08)
[2020-06-01] MEDS ORDERED: ATORVASTATIN CA 20 MG TABLET (FP) PO SCH (14:32)
[2020-06-01] MEDS: MELATONIN 5 MG TABLETS PO PRN (21:15)
[2020-06-02] MEDS: oxyCODONE HCL 5 MG TABLET PO PRN ×4 (06:56→18:42)
[2020-06-02] MEDS: DOCUSATE SODIUM 100 MG CAPSULE (FP) PO SCH ×3 (06:57→21:14)
[2020-06-02 07:08] LABS: CALCIUM 9.7 mg/dL (8.5-10.1)
[2020-06-02 07:13] LABS: CREATININE 0.7 mg/dL (0.55-1.3)
[2020-06-02 07:15] LABS: HEMATOCRIT 41.9 % (32.4-45.2); HEMOGLOBIN 14.5 GM/dL (10.7-15.3); MCH 32.9 pg (25.7-33.7); MCHC 34.6 g/dl (32.0-36.0); MEAN CELL VOLUME 95.1 fl (80-96); MEAN PLT VOLUME 8.6 fl (7.5-11.1); PLATELET COUNT 299 K/MM3 (134-434); RDW 13.5 % (11.6-15.6); WHITE BLOOD COUNT 12.4 K/mm3 (4.0-10.0)
[2020-06-02] MEDS: ALBUTEROL SO4 2.5/IPRATROPIUM 0.5 INH SOL 3 ML VIAL.NEB. NEB SCH ×4 (08:34→21:00)
[2020-06-02] MEDS ORDERED: REGADENOSON 0.4 MG/5 ML PRE-FILLED SYRINGE IVPUSH ONE ×2 (09:59→10:30)
[2020-06-02] MEDS: AMOX TR/POT CLAV 875MG/125MG TABLETS (FP) PO SCH ×2 (10:07→17:31)
[2020-06-02] MEDS: traZODone HCL 50 MG TABLET (FP) PO SCH ×2 (11:15→13:51)
[2020-06-02] MEDS: VENLAFAXINE HCL 25 MG TABLET PO SCH ×3 (11:15→21:14)
[2020-06-02] MEDS: LOSARTAN 50MG/HCTZ 12.5MG 1 TAB PO SCH ×2 (11:16→13:50)
[2020-06-02] MEDS: POLYETHYLENE GLYCOL 3350 119 GM BTL PO SCH ×2 (11:16→13:49)
[2020-06-02] MEDS: ENOXAPARIN NA (PORCINE) 40 MG/0.4 ML DISP.SYRIN SQ SCH ×2 (11:18→13:51)
[2020-06-02] MEDS ORDERED: PT OWN MED DRAWER 7, Y5N ONE ×2 (13:37→14:06)
[2020-06-02] MEDS ORDERED: NICOTINE 21 MG/24 HOURS TOPICAL PATCH TD SCH (14:10)
[2020-06-02] MEDS: NICOTINE 21 MG/24 HOURS TOPICAL PATCH TD SCH (14:32)
[2020-06-02] MEDS: ACETAMINOPHEN 325 MG TABLET (FP) PO PRN (22:21)
[2020-06-02] MEDS: MELATONIN 5 MG TABLETS PO PRN (22:21)
[2020-06-03] MEDS: oxyCODONE HCL 5 MG TABLET PO PRN ×3 (01:01→14:09)
[2020-06-03] MEDS: DOCUSATE SODIUM 100 MG CAPSULE (FP) PO SCH ×2 (06:16→14:09)
[2020-06-03] MEDS: AMOX TR/POT CLAV 875MG/125MG TABLETS (FP) PO SCH (07:45)
[2020-06-03] MEDS ORDERED: PT OWN MED DRAWER 7, Y5N ONE ×2 (08:46→09:35)
[2020-06-03] MEDS: traZODone HCL 50 MG TABLET (FP) PO SCH (09:21)
[2020-06-03] MEDS: LOSARTAN 50MG/HCTZ 12.5MG 1 TAB PO SCH (09:23)
[2020-06-03] MEDS: VENLAFAXINE HCL 25 MG TABLET PO SCH (09:23)
[2020-06-03] MEDS: POLYETHYLENE GLYCOL 3350 119 GM BTL PO SCH (09:24)
[2020-06-03] MEDS: ENOXAPARIN NA (PORCINE) 40 MG/0.4 ML DISP.SYRIN SQ SCH (09:24)
[2020-06-03] MEDS: NICOTINE 21 MG/24 HOURS TOPICAL PATCH TD SCH (09:24)
[2020-06-03] MEDS: ALBUTEROL SO4 2.5/IPRATROPIUM 0.5 INH SOL 3 ML VIAL.NEB. NEB SCH ×2 (09:29→12:24)
[2020-06-03] MEDS ORDERED: FLUCONAZOLE 150 MG TABLET PO ONE (10:00)
[2020-06-03] MEDS: ACETAMINOPHEN 325 MG TABLET (FP) PO PRN (14:10)
[2020-06-03 14:20] VITALS: BP 157/72; PULSE 85; TEMP 97.9
== END 2020-06-03 15:15 | DRG 208 ==
LOC: JER 20:07 → MERGE 20:24 → JICU 20:24 → J4W 05-29 18:20 → J7W 05-29 18:31 → J4W 05-29 18:40
PROVIDERS: ATTEND Internal Medicine
PROC: 5A1945Z Respiratory Ventilation, 24-96 Consecutive Hours (ICD-10-PCS; principal; 2020-05-21)
PROC: 0BH17EZ Insertion of Endotracheal Airway into Trachea, Via Natural or Artificial Opening (ICD-10-PCS; 2020-05-21)
DX: J69.0 Pneumonitis due to inhalation of food and vomit (principal); I46.9 Cardiac arrest, cause unspecified; J96.01 Acute respiratory failure with hypoxia; J44.1 Chronic obstructive pulmonary disease with (acute) exacerbation; I10 Essential (primary) hypertension; E78.5 Hyperlipidemia, unspecified; F32.9 Major depressive disorder, single episode, unspecified; K76.0 Fatty (change of) liver, not elsewhere classified; R74.01 Elevation of levels of liver transaminase levels; D72.829 Elevated white blood cell count, unspecified; D69.6 Thrombocytopenia, unspecified; E87.6 Hypokalemia
CPT/HCPCS: 36415; 70450-TC; 71045-TC-FY; 71250-TC; 74176-TC; 74230-TC-FY; 78452-TC; 80048; 80053; 80061; 81003; 82550; 82553; 82962; 83036; 83721; 83735; 83880; 84100; 84443; 84484; 85025; 85027; 87040; 87070; 87086; 87186; 87205; 87899; 90732; 92611-GN; 93005; 93010; 93017; 93306-TC; 94002; 94010; 94640; 94761; 97116-GP; 97162-GP; 99291; 99292; A9502; C9803; G0009; J0131; J2785; U0003; U0005

== ENCOUNTER 2021-07-12 15:19 | Inpatient (IN) | payer BC, OTHER ==
[2021-07-12] MEDS ORDERED: BENZOIN/ALOE VERA/STORAX/TOLU 58 ML BOTTLE ONE (15:29)
[2021-07-12] MEDS ORDERED: NALOXONE HCL 0.4 MG/ML VIAL ONE ×3 (15:35→16:41)
[2021-07-12] MEDS: ALBUTEROL SO4 2.5/IPRATROPIUM 0.5 INH SOL 3 ML VIAL.NEB. NEB SCH ×8 (15:40→20:19)
[2021-07-12] MEDS ORDERED: LORazepam 2 MG/ML SDV VIAL IVPUSH ONE ×2 (15:50→19:31)
[2021-07-12 16:09] VITALS: BMI 27.4
[2021-07-12] MEDS ORDERED: NALOXONE HCL 2 MG in DEXTROSE 5%-WATER - 495 ML IV SCH (16:30)
[2021-07-12 17:00] LABS: VENOUS BASE EXCESS -5.9 mmol/L (-2-2); VENOUS O2 SATURATION 84.6 % (70-80); VENOUS PCO2 66.1 mmHg (38-52)
[2021-07-12 17:01] LABS: BASO % 0.5 % (0-2.0); EOS % 1.8 % (0-4.5); HEMOGLOBIN 14.2 GM/dL (10.7-15.3); LYMPH % 27.2 % (8-40); MCH 33.3 pg (25.7-33.7); MCHC 34.7 g/dl (32.0-36.0); MEAN CELL VOLUME 96.1 fl (80-96); MEAN PLT VOLUME 8.3 fl (7.5-11.1); MONO % 4.2 % (3.8-10.2); NEUT % 66.3 % (42.8-82.8); PLATELET COUNT 215 10^3/uL (134-434); RBC 4.27 M/mm3 (3.60-5.2); RDW 13.5 % (11.6-15.6); WHITE BLOOD COUNT 8.5 K/mm3 (4.0-10.0)
[2021-07-12 17:02] LABS: VENOUS PH 7.172 (7.310-7.410)
[2021-07-12 17:15] LABS: ACTIVATED PTT 30.7 SECONDS (25.2-36.5); INR 1.02 (0.83-1.09); PROTHROMBIN TIME (PATIENT) 11.7 SEC (9.7-13.0)
[2021-07-12 17:23] LABS: BLOOD UREA NITROGEN 10.5 mg/dL (7-18); CALCIUM 8.4 mg/dL (8.5-10.1)
[2021-07-12 17:24] LABS: ALBUMIN 3.9 g/dl (3.4-5.0)
[2021-07-12 17:27] LABS: CREATININE 1.4 mg/dL (0.55-1.3)
[2021-07-12 17:28] LABS: BILIRUBIN,TOTAL 0.4 mg/dL (0.2-1); TOT PROT 7.5 g/dl (6.4-8.2)
[2021-07-12 17:34] LABS: LACTIC ACID 3.2 mmol/L (0.4-2.0)
[2021-07-12 17:50] LABS: EPI CELLS 10 /uL (0-25.1); HYALINE CASTS 0 /uL (0-3.1); URINE APPEARANCE CLEAR; URINE BACTERIA 80 /uL (0-1359); URINE BILIRUBIN NEGATIVE (NEGATIVE); URINE COLOR YELLOW; URINE GLUCOSE (UA) TRACE (NEGATIVE); URINE KETONE NEGATIVE (NEGATIVE); URINE LEUK ESTERASE NEGATIVE (NEGATIVE); URINE NITRITE NEGATIVE (NEGATIVE); URINE PROTEIN 1+ (NEGATIVE); URINE RBC 2 /uL (0-23.9); URINE UROBILINOGEN 0.2 mg/dL (0.2-1.0); URINE WBC 6 /uL (0-25.8)
[2021-07-12 17:56] LABS: METHADONE, UR NEGATIVE (NEGATIVE); OPIATES, URI NEGATIVE (NEGATIVE); PHENCYCLIDINE,URINE NEGATIVE (NEGATIVE); URINE AMPHETAMINES NEGATIVE (NEGATIVE); URINE BARBITURATES NEGATIVE (NEGATIVE); URINE BENZODIAZEPINES NEGATIVE (NEGATIVE)
[2021-07-12] MEDS ORDERED: NALOXONE HCL 0.4 MG/ML VIAL IVPUSH ONE (18:51)
[2021-07-12] MEDS ORDERED: ALBUTEROL SO4 2.5/IPRATROPIUM 0.5 INH SOL 3 ML VIAL.NEB. NEB ONE (18:58)
[2021-07-12] MEDS ORDERED: ACETAMINOPHEN 325 MG TABLET (FP) PO PRN (19:20)
[2021-07-12] MEDS ORDERED: HALOPERIDOL LACTATE 5 MG/ML ONE (19:36)
[2021-07-12] MEDS ORDERED: HALOPERIDOL LACTATE 5 MG/ML IV ONE (19:36)
[2021-07-12] MEDS: LACTATED RINGERS SOLUTION 1,000 ML/1,000 ML INFUS.BAG IV SCH (20:13)
[2021-07-12] MEDS ORDERED: KCL 10 MEQ IVPB 10 MEQ/100 ML INFUS.BAG IVPB ONE (20:19)
[2021-07-12] MEDS: KCL 10 MEQ IVPB 10 MEQ/100 ML INFUS.BAG IVPB SCH ×2 (20:22→22:41)
[2021-07-12] MEDS ORDERED: ACETAMINOPHEN 1000 MG/100 ML BAG IVPB PRN (20:28)
[2021-07-12 21:58] LABS: ARTERIAL BLD GAS O2 SATURATION 98.4 % (95-98); ARTERIAL BLOOD GAS BASE EXCESS -4.9 mmol/L (-2-2); ARTERIAL BLOOD GAS PO2 139.4 mmHg (80-100); ARTERIAL BLOOD GAS pH 7.266 (7.350-7.450)
[2021-07-12] MEDS ORDERED: CHLORHEXIDINE GLUCONATE 4% CLEANSER FOR DECOLONIZATION TP SCH (22:00)
[2021-07-12] MEDS: HEPARIN NA (PORCINE) 5,000 UNITS/ML 1ML VIAL SQ SCH (23:00)
[2021-07-12] MEDS: MUPIROCIN 2% TOPICAL OINTMENT FOR DECOLONIZATION NS SCH (23:00)
[2021-07-13] MEDS: KCL 10 MEQ IVPB 10 MEQ/100 ML INFUS.BAG IVPB SCH (00:23)
[2021-07-13] MEDS ORDERED: SODIUM CHLORIDE 1,000 ML IV STA ×2 (02:33→14:11)
[2021-07-13] MEDS: HEPARIN NA (PORCINE) 5,000 UNITS/ML 1ML VIAL SQ SCH ×2 (06:05→14:09)
[2021-07-13] MEDS: LACTATED RINGERS SOLUTION 1,000 ML/1,000 ML INFUS.BAG IV SCH (06:28)
[2021-07-13 07:10] LABS: BASO % 0.3 % (0-2.0); EOS % 1.5 % (0-4.5); HEMATOCRIT 36.6 % (32.4-45.2); HEMOGLOBIN 12.5 GM/dL (10.7-15.3); LYMPH % 23.9 % (8-40); MCH 32.9 pg (25.7-33.7); MCHC 34.1 g/dl (32.0-36.0); MEAN CELL VOLUME 96.7 fl (80-96); MEAN PLT VOLUME 8.3 fl (7.5-11.1); MONO % 7.1 % (3.8-10.2); NEUT % 67.2 % (42.8-82.8); PLATELET COUNT 156 10^3/uL (134-434); RBC 3.78 M/mm3 (3.60-5.2); RDW 13.7 % (11.6-15.6); WHITE BLOOD COUNT 8.7 K/mm3 (4.0-10.0)
[2021-07-13 07:22] LABS: CALCIUM 7.9 mg/dL (8.5-10.1)
[2021-07-13 07:23] LABS: ALBUMIN 3.2 g/dl (3.4-5.0); BLOOD UREA NITROGEN 10.6 mg/dL (7-18); MAGNESIUM 1.7 mg/dL (1.8-2.4)
[2021-07-13 07:26] LABS: CREATININE 1.2 mg/dL (0.55-1.3); PHOSPHOROUS 3.2 mg/dL (2.5-4.9)
[2021-07-13 07:27] LABS: BILIRUBIN,TOTAL 0.7 mg/dL (0.2-1); TOT PROT 5.9 g/dl (6.4-8.2)
[2021-07-13] MEDS ORDERED: NALOXONE HCL 0.4 MG/ML VIAL IVPUSH ONE (08:08)
[2021-07-13] MEDS ORDERED: LACTATED RINGERS SOLUTION 1000 ML INFUS.BAG IV ONE ×2 (08:08→14:13)
[2021-07-13 08:18] LABS: LACTIC ACID 3.1 mmol/L (0.4-2.0)
[2021-07-13] MEDS ORDERED: MAGNESIUM 2GM/50ML STERILE WATER IVPB IVPB ONE (08:29)
[2021-07-13] MEDS: MUPIROCIN 2% TOPICAL OINTMENT FOR DECOLONIZATION NS SCH (09:03)
[2021-07-13] MEDS ORDERED: LACTATED RINGERS SOLUTION 1,000 ML/1,000 ML INFUS.BAG IV SCH (14:12)
[2021-07-13] MEDS ORDERED: LORazepam 2 MG/ML SDV VIAL IVPUSH ONE (18:30)
[2021-07-13 18:46] VITALS: BP 95/59; PULSE 65; TEMP 98.4
[2021-07-15 17:56] LABS: COCAINE, UR POSITIVE (NEGATIVE)
== END 2021-07-13 20:30 | disposition left against medical advice (07) | DRG 917 ==
LOC: JER 15:19 → JERBED 19:29 → JICU 22:26
PROVIDERS: ADMIT Internal Medicine Pulmonary Disease; ATTEND Internal Medicine Pulmonary Disease
DX: T40.2X1A Poisoning by other opioids, accidental (unintentional), initial encounter (principal); J96.21 Acute and chronic respiratory failure with hypoxia; J96.22 Acute and chronic respiratory failure with hypercapnia; G93.41 Metabolic encephalopathy; N17.9 Acute kidney failure, unspecified; J98.11 Atelectasis; T40.5X1A Poisoning by cocaine, accidental (unintentional), initial encounter; I10 Essential (primary) hypertension; E78.5 Hyperlipidemia, unspecified; E66.9 Obesity, unspecified; Z68.28 Body mass index [BMI] 28.0-28.9, adult; R73.03 Prediabetes; F19.10 Other psychoactive substance abuse, uncomplicated; I95.9 Hypotension, unspecified; E87.6 Hypokalemia; F32.A Depression, unspecified; Z72.89 Other problems related to lifestyle; Y92.098 Other place in other non-institutional residence as the place of occurrence of the external cause
CPT/HCPCS: 0241U-QW; 36415; 36600; 70450-TC; 71045-TC-FY; 71250-TC; 72125-TC; 80053; 80307; 81003; 82803; 83036; 83605; 83735; 84100; 84443; 84484; 85025; 85610; 85730; 93005; 93010; 99285-25; J1644

== ENCOUNTER 2022-05-30 23:40 | Emergency (ER) | payer BC ==
[2022-05-30 23:44] VITALS: BP 151/75; PULSE 75; RESP 18; TEMP 98.7; BMI 29.9
== END 2022-05-31 00:05 | disposition left against medical advice (07) ==
LOC: JER 23:40
DX: R10.31 Right lower quadrant pain (principal)
CPT/HCPCS: 99281-25

== ENCOUNTER 2023-01-12 16:30 | Inpatient (IN) | payer BC ==
[2023-01-12] MEDS ORDERED: methylPREDNISolone NA SUCC 125 MG/2 ML VIAL IVPUSH ONE (16:33)
[2023-01-12] MEDS: ALBUTEROL SO4 2.5/IPRATROPIUM 0.5 INH SOL 3 ML VIAL.NEB. NEB SCH ×4 (16:45→17:30)
[2023-01-12] MEDS ORDERED: ALBUTEROL SO4 2.5/IPRATROPIUM 0.5 INH SOL 3 ML VIAL.NEB. NEB ONE (16:48)
[2023-01-12] MEDS ORDERED: methylPREDNISolone NA SUCC 125 MG/2 ML VIAL ONE (16:48)
[2023-01-12 18:01] LABS: BASO % 0.8 % (0-2.0); EOS % 8.9 % (0-4.5); HEMATOCRIT 46.9 % (32.4-45.2); HEMOGLOBIN 15.5 GM/dL (10.7-15.3); LYMPH % 25.9 % (8-40); MCH 31.7 pg (25.7-33.7); MCHC 33.1 g/dl (32.0-36.0); MEAN CELL VOLUME 95.8 fl (80-96); MEAN PLT VOLUME 8.6 fl (7.5-11.1); MONO % 7.3 % (3.8-10.2); NEUT % 57.1 % (42.8-82.8); PLATELET COUNT 168 10^3/uL (134-434); RBC 4.89 M/mm3 (3.60-5.2); RDW 13.4 % (11.6-15.6); WHITE BLOOD COUNT 6.8 K/mm3 (4.0-10.0)
[2023-01-12 18:06] LABS: VENOUS BASE EXCESS -1.8 mmol/L (-2-2); VENOUS O2 SATURATION 91.3 % (70-80); VENOUS PCO2 46.5 mmHg (38-52); VENOUS PH 7.338 (7.310-7.410)
[2023-01-12] MEDS ORDERED: LORazepam 2 MG TABLET PO ONE (18:08)
[2023-01-12] MEDS ORDERED: CEFTRIAXONE 1,000 MG in DEXTROSE 5%-WATER - 50 ML IVPB ONE (18:12)
[2023-01-12] MEDS ORDERED: AZITHROMYCIN IVPB 500 MG in DEXTROSE 5%-WATER - 250 ML IVPB ONE (18:14)
[2023-01-12 18:17] LABS: POTASSIUM 4.4 mmol/L (3.5-5.1)
[2023-01-12 18:18] LABS: CALCIUM 8.6 mg/dL (8.5-10.1)
[2023-01-12 18:19] LABS: ALBUMIN 3.4 g/dl (3.4-5.0); BLOOD UREA NITROGEN 10.9 mg/dL (7-18); MAGNESIUM 1.8 mg/dL (1.8-2.4)
[2023-01-12 18:22] LABS: CREATININE 0.7 mg/dL (0.55-1.3)
[2023-01-12 18:23] LABS: TOT PROT 7.1 g/dl (6.4-8.2)
[2023-01-12 18:24] LABS: BILIRUBIN,TOTAL 0.8 mg/dL (0.2-1)
[2023-01-12] MEDS ORDERED: CEFTRIAXONE 1 GM/50 ML BAG ONE (18:44)
[2023-01-12] MEDS ORDERED: AZITHROMYCIN IVPB 500 MG/250 ML BAG IVPB ONE (18:45)
[2023-01-12] MEDS ORDERED: MAGNESIUM SULF 50% (8.12 MEQ/2 ML-1 GM VIAL) IVPB ONE ×2 (18:50→19:00)
[2023-01-12] MEDS ORDERED: ASPIRIN 81 MG CHEWABLE TABLETS PO ONE (19:01)
[2023-01-12] MEDS ORDERED: MAGNESIUM 1GM/D5W - 1 GM/100 ML IVPB IVPB ONE (19:39)
[2023-01-12] MEDS ORDERED: ASPIRIN 81 MG CHEWABLE TABLETS ONE (19:39)
[2023-01-12] MEDS ORDERED: ALBUTEROL SO4 0.083% IH SOL 2.5 MG/3 ML VIAL.NEB. NEB SCH (20:00)
[2023-01-12] MEDS ORDERED: ALBUTEROL SO4 0.083% IH SOL 2.5 MG/3 ML VIAL.NEB. NEB ONE (20:35)
[2023-01-12 20:43] LABS: POTASSIUM 4.4 mmol/L (3.5-5.1)
[2023-01-12 20:45] LABS: ALBUMIN 3.4 g/dl (3.4-5.0); CALCIUM 8.4 mg/dL (8.5-10.1); MAGNESIUM 1.7 mg/dL (1.8-2.4)
[2023-01-12 20:48] LABS: CREATININE 0.9 mg/dL (0.55-1.3)
[2023-01-12 20:50] LABS: BILIRUBIN,TOTAL 0.5 mg/dL (0.2-1); TOT PROT 6.9 g/dl (6.4-8.2)
[2023-01-12 20:55] LABS: METHADONE, UR NEGATIVE (NEGATIVE); PHENCYCLIDINE,URINE NEGATIVE (NEGATIVE); URINE AMPHETAMINES NEGATIVE (NEGATIVE); URINE BARBITURATES NEGATIVE (NEGATIVE); URINE BENZODIAZEPINES NEGATIVE (NEGATIVE)
[2023-01-12 20:56] LABS: OPIATES, URI NEGATIVE (NEGATIVE)
[2023-01-12 21:26] LABS: COCAINE, UR POSITIVE (NEGATIVE)
[2023-01-12] MEDS: traZODone HCL 50 MG TABLET (FP) PO SCH (22:36)
[2023-01-12] MEDS: NICOTINE 7 MG/24 HOURS TOPICAL PATCH TD SCH (22:36)
[2023-01-12] MEDS: BUDESONIDE/FORMETEROL FUMARATE 160/4.5 mcg INHALER IH SCH (22:48)
[2023-01-13 01:58] VITALS: BMI 25.0
[2023-01-13] MEDS: methylPREDNISolone NA SUCC 40 MG/1 ML VIAL IVPUSH SCH ×3 (02:21→17:25)
[2023-01-13 07:48] LABS: BASO % 0.1 % (0-2.0); EOS % 0.1 % (0-4.5); HEMATOCRIT 40.8 % (32.4-45.2); HEMOGLOBIN 13.7 GM/dL (10.7-15.3); LYMPH % 6.5 % (8-40); MCH 32.1 pg (25.7-33.7); MCHC 33.6 g/dl (32.0-36.0); MEAN CELL VOLUME 95.7 fl (80-96); MEAN PLT VOLUME 9.2 fl (7.5-11.1); MONO % 1.1 % (3.8-10.2); NEUT % 92.2 % (42.8-82.8); PLATELET COUNT 177 10^3/uL (134-434); RBC 4.26 M/mm3 (3.60-5.2); RDW 13.3 % (11.6-15.6); WHITE BLOOD COUNT 5.8 K/mm3 (4.0-10.0)
[2023-01-13] MEDS: ALBUTEROL SO4 2.5/IPRATROPIUM 0.5 INH SOL 3 ML VIAL.NEB. NEB SCH ×4 (07:50→21:00)
[2023-01-13 08:01] LABS: CALCIUM 8.8 mg/dL (8.5-10.1)
[2023-01-13 08:02] LABS: ALBUMIN 3.3 g/dl (3.4-5.0); BLOOD UREA NITROGEN 10.6 mg/dL (7-18)
[2023-01-13 08:06] LABS: BILIRUBIN,TOTAL 0.5 mg/dL (0.2-1); TOT PROT 6.6 g/dl (6.4-8.2)
[2023-01-13] MEDS: NICOTINE 7 MG/24 HOURS TOPICAL PATCH TD SCH (09:03)
[2023-01-13] MEDS ORDERED: VENLAFAXINE HCL 150 MG E.R. CAPSULE PO SCH (10:00)
[2023-01-13] MEDS ORDERED: FLU VACCINE (FLULAVAL) PF 60 MCG/0.5 ML SYRINGE 2023-2024 IM ONE (10:00)
[2023-01-13 10:03] LABS: POTASSIUM 3.9 mmol/L (3.5-5.1)
[2023-01-13] MEDS: THIAMINE HCL 200 MG/2 ML VIAL IVPB SCH (10:47)
[2023-01-13] MEDS: FOLIC ACID 1 MG TABLET (FP) PO SCH (10:48)
[2023-01-13] MEDS: ENOXAPARIN NA (PORCINE) 40 MG/0.4 ML DISP.SYRIN SQ SCH (10:53)
[2023-01-13] MEDS: BUDESONIDE/FORMETEROL FUMARATE 160/4.5 mcg INHALER IH SCH ×2 (10:54→21:47)
[2023-01-13] MEDS: CEFTRIAXONE 1 GM in DEXTROSE 5%-WATER - 50 ML IVPB SCH (10:54)
[2023-01-13 10:59] LABS: ANISOCYTOSIS 0; HELMET CELLS 0; HOWELL-JOLLY BODIES 0; MACROCYTOSIS 0; OVALOCYTE 0; ROULEAU 0; SICKELED CELLS 0; TARGET CELLS 0; TEAR DROP CELLS 0; TOXIC GRANULATION 0
[2023-01-13] MEDS: LOSARTAN POTASSIUM 50 MG TABLET PO SCH (11:01)
[2023-01-13] MEDS: AZITHROMYCIN IVPB 250 MG in DEXTROSE 5%-WATER - 250 ML IVPB SCH (12:43)
[2023-01-13] MEDS ORDERED: MAGNESIUM SULFATE IN WATER 2 GM/50 ML IVPB IVPB ONE (16:47)
[2023-01-13] MEDS ORDERED: ACETAMINOPHEN 325 MG TABLET (FP) PO PRN (16:58)
[2023-01-13 20:06] LABS: PH,URINE 6.5 (5.0-8.0); URINE APPEARANCE CLOUDY; URINE BILIRUBIN NEGATIVE (NEGATIVE); URINE COLOR YELLOW; URINE GLUCOSE (UA) 3+ (NEGATIVE); URINE KETONE TRACE (NEGATIVE); URINE LEUK ESTERASE NEGATIVE (NEGATIVE); URINE NITRITE NEGATIVE (NEGATIVE); URINE PROTEIN NEGATIVE (NEGATIVE); URINE UROBILINOGEN 0.2 mg/dL (0.2-1.0)
[2023-01-13] MEDS: traZODone HCL 50 MG TABLET (FP) PO SCH (21:47)
[2023-01-14] MEDS: methylPREDNISolone NA SUCC 40 MG/1 ML VIAL IVPUSH SCH ×2 (01:33→10:27)
[2023-01-14] MEDS: ALBUTEROL SO4 0.083% IH SOL 2.5 MG/3 ML VIAL.NEB. NEB PRN (07:16)
[2023-01-14 07:33] LABS: HEMATOCRIT 41.1 % (32.4-45.2); HEMOGLOBIN 13.4 GM/dL (10.7-15.3); MCH 31.4 pg (25.7-33.7); MCHC 32.6 g/dl (32.0-36.0); MEAN CELL VOLUME 96.3 fl (80-96); MEAN PLT VOLUME 9.1 fl (7.5-11.1); PLATELET COUNT 180 10^3/uL (134-434); RBC 4.27 M/mm3 (3.60-5.2); RDW 13.4 % (11.6-15.6); WHITE BLOOD COUNT 13.1 K/mm3 (4.0-10.0)
[2023-01-14 08:15] LABS: POTASSIUM 4.4 mmol/L (3.5-5.1)
[2023-01-14] MEDS: ALBUTEROL SO4 2.5/IPRATROPIUM 0.5 INH SOL 3 ML VIAL.NEB. NEB SCH ×4 (08:15→20:03)
[2023-01-14 08:21] LABS: BLOOD UREA NITROGEN 14.9 mg/dL (7-18); CALCIUM 8.7 mg/dL (8.5-10.1); MAGNESIUM 2.3 mg/dL (1.8-2.4)
[2023-01-14 08:25] LABS: CREATININE 0.8 mg/dL (0.55-1.3); PHOSPHOROUS 2.8 mg/dL (2.5-4.9)
[2023-01-14] MEDS: CEFTRIAXONE 1 GM in DEXTROSE 5%-WATER - 50 ML IVPB SCH (10:26)
[2023-01-14] MEDS: LOSARTAN POTASSIUM 50 MG TABLET PO SCH (10:27)
[2023-01-14] MEDS: NICOTINE 7 MG/24 HOURS TOPICAL PATCH TD SCH (10:27)
[2023-01-14] MEDS: FOLIC ACID 1 MG TABLET (FP) PO SCH (10:27)
[2023-01-14] MEDS: ENOXAPARIN NA (PORCINE) 40 MG/0.4 ML DISP.SYRIN SQ SCH (10:27)
[2023-01-14] MEDS: guaiFENesin/D-METHORPHAN TAB.ER.12H PO SCH ×2 (10:48→22:13)
[2023-01-14] MEDS: BUDESONIDE/FORMETEROL FUMARATE 160/4.5 mcg INHALER IH SCH ×2 (10:50→22:14)
[2023-01-14] MEDS ORDERED: BISACODYL 5 MG TABLET.DR (FP) PO ONE (11:15)
[2023-01-14] MEDS: THIAMINE HCL 200 MG/2 ML VIAL IVPB SCH (11:21)
[2023-01-14] MEDS: AZITHROMYCIN IVPB 250 MG in DEXTROSE 5%-WATER - 250 ML IVPB SCH (11:27)
[2023-01-14] MEDS: VENLAFAXINE HCL 75 MG E.R. CAPSULES PO SCH (13:21)
[2023-01-14] MEDS: SENNOSIDES 8.6MG TABLET (FP) PO PRN (22:14)
[2023-01-14] MEDS: traZODone HCL 50 MG TABLET (FP) PO SCH (22:15)
[2023-01-15] MEDS: ALBUTEROL SO4 0.083% IH SOL 2.5 MG/3 ML VIAL.NEB. NEB PRN ×2 (06:23→23:46)
[2023-01-15 07:16] LABS: HEMATOCRIT 41.6 % (32.4-45.2); HEMOGLOBIN 14.3 GM/dL (10.7-15.3); LYMPH % 20.2 % (8-40); MCHC 34.3 g/dl (32.0-36.0); MEAN CELL VOLUME 96.2 fl (80-96); MEAN PLT VOLUME 8.9 fl (7.5-11.1); MONO % 5.5 % (3.8-10.2); NEUT % 74.3 % (42.8-82.8); PLATELET COUNT 174 10^3/uL (134-434); RBC 4.33 M/mm3 (3.60-5.2); RDW 13.7 % (11.6-15.6); WHITE BLOOD COUNT 11.7 K/mm3 (4.0-10.0)
[2023-01-15 07:29] LABS: ALBUMIN 3.4 g/dl (3.4-5.0); CALCIUM 8.5 mg/dL (8.5-10.1)
[2023-01-15 07:33] LABS: CREATININE 0.8 mg/dL (0.55-1.3)
[2023-01-15 07:34] LABS: BILIRUBIN,TOTAL 0.3 mg/dL (0.2-1); TOT PROT 6.8 g/dl (6.4-8.2)
[2023-01-15] MEDS: ALBUTEROL SO4 2.5/IPRATROPIUM 0.5 INH SOL 3 ML VIAL.NEB. NEB SCH ×4 (07:35→20:07)
[2023-01-15] MEDS: guaiFENesin/D-METHORPHAN TAB.ER.12H PO SCH ×2 (10:22→21:43)
[2023-01-15] MEDS: LOSARTAN POTASSIUM 50 MG TABLET PO SCH (10:22)
[2023-01-15] MEDS: methylPREDNISolone NA SUCC 40 MG/1 ML VIAL IVPUSH SCH (10:22)
[2023-01-15] MEDS: FOLIC ACID 1 MG TABLET (FP) PO SCH (10:22)
[2023-01-15] MEDS: NICOTINE 7 MG/24 HOURS TOPICAL PATCH TD SCH (10:22)
[2023-01-15] MEDS: ENOXAPARIN NA (PORCINE) 40 MG/0.4 ML DISP.SYRIN SQ SCH (10:22)
[2023-01-15] MEDS: CEFTRIAXONE 1 GM in DEXTROSE 5%-WATER - 50 ML IVPB SCH (10:23)
[2023-01-15] MEDS: BUDESONIDE/FORMETEROL FUMARATE 160/4.5 mcg INHALER IH SCH ×2 (10:23→21:43)
[2023-01-15] MEDS: VENLAFAXINE HCL 75 MG E.R. CAPSULES PO SCH (10:24)
[2023-01-15] MEDS: THIAMINE HCL 200 MG/2 ML VIAL IVPB SCH (10:45)
[2023-01-15] MEDS: AZITHROMYCIN IVPB 250 MG in DEXTROSE 5%-WATER - 250 ML IVPB SCH (11:22)
[2023-01-15] MEDS: SENNOSIDES 8.6MG TABLET (FP) PO PRN (21:42)
[2023-01-15] MEDS: traZODone HCL 50 MG TABLET (FP) PO SCH (21:42)
[2023-01-15] MEDS ORDERED: LABETALOL HCL 200 MG TABLET (FP) PO ONE (22:02)
[2023-01-16] MEDS: ALBUTEROL SO4 0.083% IH SOL 2.5 MG/3 ML VIAL.NEB. NEB PRN (06:31)
[2023-01-16] MEDS: ALBUTEROL SO4 2.5/IPRATROPIUM 0.5 INH SOL 3 ML VIAL.NEB. NEB SCH ×2 (08:25→11:35)
[2023-01-16 09:00] VITALS: BP 143/91; PULSE 86; RESP 22; TEMP 97.2
[2023-01-16] MEDS: CEFTRIAXONE 1 GM in DEXTROSE 5%-WATER - 50 ML IVPB SCH (09:05)
[2023-01-16] MEDS: VENLAFAXINE HCL 75 MG E.R. CAPSULES PO SCH (09:06)
[2023-01-16] MEDS: ENOXAPARIN NA (PORCINE) 40 MG/0.4 ML DISP.SYRIN SQ SCH (09:06)
[2023-01-16] MEDS: FOLIC ACID 1 MG TABLET (FP) PO SCH (09:06)
[2023-01-16] MEDS: LOSARTAN POTASSIUM 50 MG TABLET PO SCH (09:06)
[2023-01-16] MEDS: NICOTINE 7 MG/24 HOURS TOPICAL PATCH TD SCH (09:06)
[2023-01-16] MEDS: guaiFENesin/D-METHORPHAN TAB.ER.12H PO SCH (09:06)
[2023-01-16] MEDS: THIAMINE HCL 200 MG/2 ML VIAL IVPB SCH (09:07)
[2023-01-16] MEDS: BUDESONIDE/FORMETEROL FUMARATE 160/4.5 mcg INHALER IH SCH (09:11)
[2023-01-16] MEDS: methylPREDNISolone NA SUCC 40 MG/1 ML VIAL IVPUSH SCH (09:41)
[2023-01-16] MEDS: AZITHROMYCIN IVPB 250 MG in DEXTROSE 5%-WATER - 250 ML IVPB SCH (09:41)
[2023-01-16] MEDS ORDERED: ALPRAZolam 0.25 MG TABLET PO ONE (10:00)
== END 2023-01-16 12:26 | disposition home or self-care (01) | DRG 193 ==
LOC: JER 16:30 → JERBED 18:09 → OBSVTOIN 20:18 → J4W 22:08
PROVIDERS: ADMIT Internal Medicine; ATTEND Internal Medicine
DX: J18.9 Pneumonia, unspecified organism (principal); J96.01 Acute respiratory failure with hypoxia; J44.1 Chronic obstructive pulmonary disease with (acute) exacerbation; J44.0 Chronic obstructive pulmonary disease with (acute) lower respiratory infection; F32.A Depression, unspecified; I10 Essential (primary) hypertension; E78.5 Hyperlipidemia, unspecified; R73.03 Prediabetes; F14.10 Cocaine abuse, uncomplicated; F12.10 Cannabis abuse, uncomplicated; F10.10 Alcohol abuse, uncomplicated; Z86.74 Personal history of sudden cardiac arrest; Z99.81 Dependence on supplemental oxygen; F39 Unspecified mood [affective] disorder; K59.00 Constipation, unspecified
CPT/HCPCS: 0241U-QW; 36415; 71045-TC-FY; 80048; 80053; 80307; 81003; 82803; 83735; 84100; 84484; 85025; 85027; 85379; 85730; 87070; 87081; 87205; 87899; 90686; 93005; 93010; 93306-TC; 94640; 94761; 99285-25; G0008; G0378

== ENCOUNTER 2023-01-17 11:07 | Emergency (ER) | payer BC ==
[2023-01-17 11:37] VITALS: BP 94/63; RESP 20; TEMP 98.2; BMI 25.8
[2023-01-17 11:58] VITALS: PULSE 78
[2023-01-17] MEDS ORDERED: ACETAMINOPHEN 1000 MG/100 ML BAG IVPB ONE (12:02)
[2023-01-17] MEDS ORDERED: ALBUTEROL SO4 2.5/IPRATROPIUM 0.5 INH SOL 3 ML VIAL.NEB. NEB ONE (12:02)
[2023-01-17] MEDS ORDERED: ACETAMINOPHEN INJECTION 100 ML IVPB ONE (12:14)
[2023-01-17 13:02] LABS: BASO % 0.1 % (0-2.0); HEMATOCRIT 44.8 % (32.4-45.2); HEMOGLOBIN 15.1 GM/dL (10.7-15.3); LYMPH % 37.4 % (8-40); MCH 31.7 pg (25.7-33.7); MCHC 33.6 g/dl (32.0-36.0); MEAN CELL VOLUME 94.5 fl (80-96); MEAN PLT VOLUME 8.2 fl (7.5-11.1); MONO % 7.3 % (3.8-10.2); NEUT % 52.2 % (42.8-82.8); PLATELET COUNT 255 10^3/uL (134-434); RBC 4.74 M/mm3 (3.60-5.2); RDW 13.4 % (11.6-15.6); WHITE BLOOD COUNT 13.5 K/mm3 (4.0-10.0)
[2023-01-17 13:18] LABS: VENOUS BASE EXCESS -0.8 mmol/L (-2-2); VENOUS O2 SATURATION 89.6 % (70-80); VENOUS PCO2 44.3 mmHg (38-52); VENOUS PH 7.366 (7.310-7.410)
[2023-01-17 13:29] LABS: POTASSIUM 3.5 mmol/L (3.5-5.1)
[2023-01-17 13:31] LABS: CALCIUM 8.8 mg/dL (8.5-10.1)
[2023-01-17 13:33] LABS: ALBUMIN 3.7 g/dl (3.4-5.0); BLOOD UREA NITROGEN 15.8 mg/dL (7-18); MAGNESIUM 2.3 mg/dL (1.8-2.4)
[2023-01-17 13:35] LABS: CREATININE 0.9 mg/dL (0.55-1.3)
[2023-01-17 13:36] LABS: BILIRUBIN,TOTAL 0.4 mg/dL (0.2-1); TOT PROT 7.1 g/dl (6.4-8.2)
[2023-01-17] MEDS ORDERED: ASPIRIN 325 MG TABLET PO ONE (14:16)
[2023-01-17] MEDS ORDERED: ASPIRIN 325 MG TABLET ONE (14:22)
== END 2023-01-17 19:07 | disposition home or self-care (01) ==
LOC: JER 11:07
PROC: 3E033NZ Introduction of Analgesics, Hypnotics, Sedatives into Peripheral Vein, Percutaneous Approach (ICD-10-PCS; principal; 2023-01-17)
DX: R06.02 Shortness of breath (principal); R07.89 Other chest pain; Z20.822 Contact with and (suspected) exposure to COVID-19
CPT/HCPCS: 0241U-QW; 36415; 71045-TC-FY; 80053; 82803; 83690; 83735; 84484; 85025; 93005; 93010; 99285-25

== ENCOUNTER 2023-01-22 10:50 | Emergency (ER) | payer BC, OTHER ==
[2023-01-22 11:09] VITALS: BP 146/89; PULSE 110; RESP 22; TEMP 97.5; BMI 25.6
[2023-01-22] MEDS ORDERED: DEXAMETHASONE SOD PHOSPHATE 10 MG/1 ML VIAL IVPUSH ONE (11:50)
[2023-01-22] MEDS ORDERED: DEXAMETHASONE SOD PHOSPHATE 10 MG/1 ML VIAL ONE (12:18)
[2023-01-22] MEDS ORDERED: ALBUTEROL SO4 2.5/IPRATROPIUM 0.5 INH SOL 3 ML VIAL.NEB. NEB ONE (12:18)
[2023-01-22] MEDS: ALBUTEROL SO4 2.5/IPRATROPIUM 0.5 INH SOL 3 ML VIAL.NEB. NEB SCH ×3 (12:20→13:06)
[2023-01-22 12:22] LABS: BASO % 0.6 % (0-2.0); EOS % 2.5 % (0-4.5); HEMATOCRIT 44.4 % (32.4-45.2); HEMOGLOBIN 15.1 GM/dL (10.7-15.3); LYMPH % 17.9 % (8-40); MCHC 33.9 g/dl (32.0-36.0); MEAN CELL VOLUME 94.4 fl (80-96); MONO % 5.2 % (3.8-10.2); NEUT % 73.8 % (42.8-82.8); PLATELET COUNT 182 10^3/uL (134-434); RBC 4.71 M/mm3 (3.60-5.2); RDW 13.3 % (11.6-15.6); WHITE BLOOD COUNT 10.4 K/mm3 (4.0-10.0)
[2023-01-22 12:43] LABS: POTASSIUM 3.9 mmol/L (3.5-5.1)
[2023-01-22 12:45] LABS: ALBUMIN 3.5 g/dl (3.4-5.0); BLOOD UREA NITROGEN 20.5 mg/dL (7-18)
[2023-01-22 12:49] LABS: CREATININE 0.9 mg/dL (0.55-1.3)
[2023-01-22 12:51] LABS: BILIRUBIN,TOTAL 0.2 mg/dL (0.2-1); TOT PROT 7.2 g/dl (6.4-8.2)
[2023-01-22 12:54] LABS: N-TERMINAL BNP 52.8 pg/ml (5-125)
== END 2023-01-22 13:41 | disposition home or self-care (01) ==
LOC: JER 10:50
PROC: 3E033GC Introduction of Other Therapeutic Substance into Peripheral Vein, Percutaneous Approach (ICD-10-PCS; principal; 2023-01-22)
PROC: 3E033GC Introduction of Other Therapeutic Substance into Peripheral Vein, Percutaneous Approach (ICD-10-PCS; 2023-01-22)
PROC: 3E0F7GC Introduction of Other Therapeutic Substance into Respiratory Tract, Via Natural or Artificial Opening (ICD-10-PCS; 2023-01-22)
DX: J44.1 Chronic obstructive pulmonary disease with (acute) exacerbation (principal); R06.02 Shortness of breath; R05.9 Cough, unspecified; Z20.822 Contact with and (suspected) exposure to COVID-19
CPT/HCPCS: 0241U-QW; 36415; 71045-TC-FY; 80053; 83880; 84484; 85025; 87040; 93005; 93010; 99285-25; J1100